=== PATIENT | male | born 1960 | race Caucasian/White ===

== ENCOUNTER 2024-12-24 14:16 | Outpatient (CLI) | payer OTHER | END 2024-12-24 14:17 | disposition home or self-care (01) | LOC: BICMRI 14:16 | PROVIDERS: ATTEND Orthopaedic Surgery | DX: M47.22 Other spondylosis with radiculopathy, cervical region (principal) | CPT/HCPCS: 72141 ==

== ENCOUNTER 2025-03-10 09:01 | Day surgery (SDC) | payer OTHER ==
[2025-03-09 14:46] VITALS: BMI 29.1
[2025-03-10] MEDS ORDERED: CEFAZOLIN 2 GM VIAL ONE (13:16)
[2025-03-10] MEDS ORDERED: Ketorolac Tromethamine 30 MG (1 mL) VIAL ONE (14:11)
== END 2025-03-10 15:25 | disposition home or self-care (01) ==
LOC: SDC 09:01
PROVIDERS: ATTEND Orthopaedic Surgery
PROC: 01N54ZZ Release Median Nerve, Percutaneous Endoscopic Approach (ICD-10-PCS; principal; 2025-03-10)
PROC: 01N40ZZ Release Ulnar Nerve, Open Approach (ICD-10-PCS; principal; 2025-03-10)
PROC: 3E0T3BZ Introduction of Anesthetic Agent into Peripheral Nerves and Plexi, Percutaneous Approach (ICD-10-PCS; principal; 2025-03-10)
DX: G56.01 Carpal tunnel syndrome, right upper limb (principal); G56.21 Lesion of ulnar nerve, right upper limb; G58.7 Mononeuritis multiplex; M48.02 Spinal stenosis, cervical region; M50.30 Other cervical disc degeneration, unspecified cervical region; I10 Essential (primary) hypertension; Z90.89 Acquired absence of other organs
CPT/HCPCS: J0166; J0665; J1885; J2250; J3010